=== PATIENT | female | born 1945 | race Caucasian/White ===

== ENCOUNTER 2022-11-20 22:48 | Emergency (ER) | payer MEDICARE, OTHER, SELFPAY ==
[2022-11-20 22:49] VITALS: BP 107/62; PULSE 66; RESP 16; TEMP 35.6; O2SAT 96
[2022-11-20 22:55] VITALS: BP 107/62; PULSE 66; RESP 16; TEMP 35.6; O2SAT 96
--- NOTE | 2022-11-20 23:48 | EKG12_ITS ---
Test Reason : SYNCOPE Blood Pressure : / mmHG Vent. Rate : 064 BPM Atrial Rate : 064 BPM P-R Int : 154 ms QRS Dur : 082 ms QT Int : 448 ms P-R-T Axes : 078 057 064 degrees QTc Int : 462 ms Normal sinus rhythm Normal ECG Confirmed by MAURICIO VANESSA, FLIP ([id number]), manager editorial TOYA KELLEY ([id number]) on 11/30/2022 6:52:39 AM Referred By: AMOL Confirmed By:FLIP MARTÍNEZ MD
--- NOTE | 2022-11-21 | CT_ITS ---
INDICATION: trauma EXAMINATION: CT BRAIN - CT Head or Brain W/O Contrast Injection TECHNIQUE: Multiple axial images were obtained of the head without intravenous contrast. A radiation dose optimization technique was used for this scan. IV Contrast dosage and agent: None. RADIATION DOSAGE (If Supplied By Facility): CTDIvol = ( 44.99 ) mGy, DLP = ( 796.11 ) mGycm COMPARISON: Prior study dated: FINDINGS: BRAIN PARENCHYMA: No intra- or extra-axial hemorrhage. No evidence of acute infarct. No intracranial mass or mass effect. There is preservation of the ngo/white matter interface. Posterior fossa structures are unremarkable. Patchy periventricular and deep white matter hypoattenuation is consistent with mild small vessel ischemic change. CSF SPACES: Proportional prominence of the ventricles and sulcal spaces is consistent with mild cerebral volume loss. No hydrocephalus. Basal cisterns are patent. CALVARIUM, SKULL BASE, PARANASAL SINUSES AND MASTOID AIR CELLS: The mastoid air cells and visualized paranasal sinuses are well aerated. The calvarium is intact. No discrete lytic or blastic abnormalities. ORBITS: Both globes, extraocular muscles, optic nerves and retrobulbar fat appear unremarkable. CT/Brain/Head without Contrast IMPRESSION: No acute intracranial finding. Electronically Signed: Mark Barroso MD at 1:22 EDT ,
--- NOTE | 2022-11-21 00:12 | EX.ED.DYSGE1 ---
HPI History of Present Illness Chief Complaint: Syncope Informant: patient and spouse/S.O. Onset/Context/Timing Onset: Today (JPTA) Narrative Narrative: Patient was at a class reunion [facility], she had not had anything to drink or eat for at least 5 or 6 hours prior, during the reunion she had 2 alcoholic beverages and that was all, and was up standing for a while talking with classmates. She had been standing for quite some time (couple hours, mingling around) when she was talking to one of her classmates suddenly started feeling lightheaded, progressed to passing out, collapsing to the floor and hit her head on the floor, and appeared to be unresponsive for a minute or 2 until she eventually came around and EMS was called to bring her to the hospital for evaluation. She has a headache, mild nausea, she otherwise feels a little malaised but fine. She denies feeling like she injured anything else. She denies any prodromal symptoms other than lightheadedness; no dyspnea, chest discomfort, severe headache prior to passing out, palpitations or racing heartbeat or focal neurologic symptoms. No recent illnesses. No recent leg pain or swelling, no history of DVT or PE. She takes baby aspirin in addition to a low-dose statin and no other medications or anticoagulants. [facility] Medical History (Updated 11/21/22 @ 02:[address] Timbo Liriano MD) Hyperlipidemia Home Medications aspirin 81 mg tablet,delayed release 81 mg PO DAILY 11/21/22 [History Last Taken Unknown] atorvastatin 10 mg tablet 10 mg PO DAILY 11/21/22 [History Last Taken Unknown] Allergy/AdvReac Type Severity Reaction Status Date / Time No Known Allergies Allergy Verified 11/20/22 22:53 Social History Smoking Status: Former smoker ROS ROS ED Constitutional Constitutional ED: Reports malaise; Denies chills or fever(s) Eyes Eyes: Denies change in vision or diplopia ENT ENT ED: Denies rhinorrhea or sore throat Cardiovascular Cardiovascular: Reports lightheadedness and syncope; Denies chest pain or palpitations Respiratory/Chest Respiratory/Chest: Denies cough or dyspnea Gastrointestinal Gastrointestinal: Reports nausea; Denies abdominal pain, diarrhea or vomiting Genitourinary Genitourinary ED: Denies dysuria or hematuria Musculoskeletal Musculoskeletal: Denies back pain or neck pain Integumentary Denies abscess or rash Neurologic Neurologic: Reports headache(s); Denies paresthesias or weakness Psychiatric Psychiatric: Denies anxiety or suicidal thoughts EXAM Physical Exam Const Vital Signs: 11/20/22 22:49 11/20/22 22:55 11/20/22 22:55 Temperature 96.1 F L 96.1 F L Temperature Source Temporal Temporal Pulse Rate 66 66 Respiratory Rate 16 16 Respiratory Pattern Normal Blood Pressure 107/62 107/62 Blood Pressure Mean 77 77 Pulse Ox 96 96 Oxygen Delivery Method Room Air Room Air 11/21/22 01:47 Temperature Temperature Source Pulse Rate 82 Respiratory Rate 17 Respiratory Pattern Blood Pressure 111/60 Blood Pressure Mean 77 Pulse Ox 95 Oxygen Delivery Method Room Air Positive well nourished and well developed General Appearance ED: well developed and NAD HEENT Reports moist mucous membranes HEENT Narrative: No hemotympanum, lopez sign, raccoon eyes or evidence of facial trauma. No objective signs of occipital/scalp trauma. normocephalic and atraumatic Eyes PERRL and EOMs intact bilaterally Neck full ROM and supple Resp normal respiratory effort and clear to auscultation bilaterally Cardio regular rate, regular rhythm and no murmurs GI non-tender and non-distended Auscultation: normoactive bowel sounds Palpation: soft Back/Spine no CVA tenderness General Back: other FROM Extremity normal to inspection General Extremety ED: Negative for edema, pulses abnormal or tenderness General Extremity: Negative for edema or pulses abnormal Neuro oriented x3, CN's II-XII intact bilaterally and no sensory deficits noted Sensorium / Orientation: awake and alert Motor Exam: strength 5/5 throughout Psych mental status grossly normal Skin no rashes or lesions noted and no wounds MDM MDM MDM Narrative Medical decision making narrative: Due to hitting her head, CT of the head was performed, it is negative for acute traumatic injury. I reviewed the images and the report which I agree with. The thought here is that the patient could be a little dehydrated. She is very thin, she has a very low BMI, it is also possible that she was transiently hypoglycemic from not eating, and underwent Samogee response and woke up, and also in the differential is a vagal reaction, the patient states she has a history of some unknown to [id number] pains and issues and sometimes these can cause a vagal trigger. Cardiac etiologies including electrical blocks, dysrhythmias are in the differential diagnosis as well. PE is in the differential but thought less likely here given her heart rate in the 60s, lack of an AV block on the EKG to explain this, and no AV shama blockers on board in addition to lack of any other symptoms such as chest discomfort or dyspnea. Initially her blood pressure was a little soft in the 90s. With IV fluids, this came up to 111/60 and she is feeling much better. We ambulated her, she has no orthostatic symptoms and feels fine. She does have mild prerenal azotemia with a [id number] ratio over 20. Her troponin is negative. Her EKG is otherwise normal. At this time I am comfortable letting her go home, we discussed reasons to return to the ER, we discussed eating tonight and encouraging good fluid intake and following up with her doctor within the next week or 2, but she is comfortable with that plan. History & Record Review Additional record(s) reviewed:: No prior records Lab Data Attestation: I reviewed the patient's lab results. Labs: Laboratory Results - last 24 hr 11/21/22 00:49 WBC 10.1 RBC 4.62 Hgb 14.3 Hct 44.9 MCV 97.2 MCH 31.0 MCHC 31.8 L RDW Std Deviation 45.7 H RDW Coeff of Esperanza 12.9 Plt Count 167 MPV 10.8 Immature Gran % (Auto) 0.400 Neut % (Auto) 71.9 H Lymph % (Auto) 13.4 L [place] % (Auto) 7.1 Eos % (Auto) 6.7 H Baso % (Auto) 0.5 Absolute Neuts (auto) 7.2 Absolute Lymphs (auto) 1.35 Nucleated RBC % 0 Sodium 141 Potassium 4.2 Chloride 110 H Carbon Dioxide 26.0 Anion Gap 5 BUN 17 Creatinine 0.76 Est GFR (MDRD) Af Amer 95 Est GFR (MDRD) Non-Af 79 BUN/Creatinine Ratio 22.5 H Glucose 95 Calcium 8.8 Troponin I High Sens 8 Radiography Diagnostic Testing: Clinical Impression(s) from Imaging Studies Brain CT 11/21/22 00:00 IMPRESSION: No acute intracranial finding. Electronically Signed: Mark Barroso MD at 1:22 EDT , Rhythm Strip Rhythm Strip: Sinus Rhythm Rate: 62 Ectopy: None EKG Initial EKG: Attestation: I personally reviewed and interpreted this EKG as follows: Interpretation: Sinus Rhythm and No Acute Injury Pattern Comments: Normal EKG, heart rate 64 Discharge Plan Triage Chief Complaint: Syncope ED Provider: Timbo Liriano Dx/Rx/DC Orders Clinical Impression: Closed head injury, Syncope and collapse, Mild dehydration Instructions: ED Dehydration (Adult), ED Fainting, Uncertain Cause Prescriptions: No Action atorvastatin 10 mg tablet 10 mg PO DAILY Patient Comments: TAKE 1 TABLET BY MOUTH EVERY DAY aspirin 81 mg tablet,delayed release (DR/EC) 81 mg PO DAILY Primary Care Provider: VANESA CASTILLO Referrals: VANESA CASTILLO [Other] (1-2 weeks) Disposition Disposition: Home, Self Care
[2022-11-21] MEDS: 0.9% Normal Saline (1000mL) 1,000 ML 999 ML IV (00:43)
[2022-11-21] MEDS: Ondansetron 4 MG/2 ML Vial IV (00:44)
[2022-11-21 00:52] LABS: Absolute Lymphocyte Count 1.35 X10^3/uL (0.83-4.51); Absolute Neutrophil Count 7.2 X10^3/uL (2.0-7.7); Basophil# 0.05 X10^3/uL; Basophil% 0.5 % (0-1); Eosinophil# 0.67 X10^3/uL; Eosinophils% 6.7 % (0-5); Hematocrit 44.9 % (37-47); Hemoglobin 14.3 g/dL (12.0-15.0); Lymphocyte # 1.35 X10^3/ul (0.83-4.51); Lymphocyte % 13.4 % (19-41); Mean Corp Hgb Conc 31.8 g/dL (32-36); Mean Corpuscular Volume 97.2 fL (81-99); Mean Platelet Vol. 10.8 fl (6.2-12.0); Monocyte# 0.71 X10^3/uL; Monocyte% 7.1 % (0-10); NRBC Flagged by Analyzer 0 % (0-5); Neutrophil # 7.24 X10^3/uL (2.7-7.7); Neutrophil % 71.9 % (47-70); Platelet Count 167 K/mm3 (150-450); RBC Distribution Width CV 12.9 % (11.6-14.6); RBC Distribution Width SD 45.7 fl (35.1-43.9); Red Blood Count 4.62 M/mm3 (4.2-5.4); White Blood Count 10.1 K/mm3 (4.4-11.0)
[2022-11-21 01:15] LABS: Anion Gap 5 (5-15); BUN 17 mg/dL (7-18); BUN/Creat Ratio 22.5 RATIO (10-20); Calcium,Total 8.8 mg/dL (8.5-10.1); Chloride 110 mmol/L (98-107); Creatinine, Serum 0.76 mg/dL (0.55-1.02); EST Glomerular Filtration Rate 79 mL/min (>60); Est Glom Filt Rate - Afr Amer 95 mL/min (>60); Glucose 95 mg/dL (74-106); Potassium 4.2 mmol/L (3.5-5.1); Sodium Level 141 mmol/L (136-145); Troponin-I HS 8 pg/mL (3.0-54.0)
[2022-11-21 01:47] VITALS: BP 111/60; PULSE 82; RESP 17; O2SAT 95
[2022-11-21 02:15] VITALS: BP 103/52
--- NOTE | 2022-11-21 02:17 | ED.RN ---
bed in room is not able to obtain weight.
== END 2022-11-21 02:18 | disposition home or self-care (01) ==
PROVIDERS: Emergency Provider Emergency Medicine; Visit Provider Emergency Medicine
DX: S09.90XA Unspecified injury of head, initial encounter (principal); R55 Syncope and collapse; E86.0 Dehydration; E78.5 Hyperlipidemia, unspecified; Z87.891 Personal history of nicotine dependence; Z79.82 Long term (current) use of aspirin; Z79.899 Other long term (current) drug therapy; X58.XXXA Exposure to other specified factors, initial encounter
CPT/HCPCS: 70450; 80048; 84484; 85025; 93005; 96361; 96374; 99285; J2405